=== PATIENT | female | born 1970 | race Caucasian/White ===

== ENCOUNTER 2022-10-18 07:57 | Outpatient (OUT) | payer OTHER, SELFPAY ==
--- NOTE | 2022-10-18 08:01 | MM_ITS ---
Patient: ALEXA SANTOS Exam Date: 10/18/2022 : 1970 Gender:F Ordering : DR JAY THOMAS Admission #: [id number] Family : DR CAN HUGHES . Order #: [id number] CLICK HERE TO VIEW EXAM RADIOLOGY REPORT PROCEDURE: MM TOMOSYNTHESIS SCREENING BI COMPARISON: MG MAMM SCREEN 3D [facility] CAD, 10/16/2021. MG MAMM SCREEN 3D [facility] CAD, 11/13/2020. MG MAMM SCREEN 3D [facility] CAD, 11/13/2019. MG MAMM SCREEN 3D [facility] CAD, 11/07/2018. INDICATIONS: Screening Calculator Name NCI Breast Cancer Risk Assessment Tool 5 Year Breast Cancer Risk Not Reported. Lifetime Breast Cancer Risk Not Reported. Personal Breast Cancer No Personal Ovarian Cancer No Treatments None Family Cancers None LOCATION: [facility] BREAST COMPOSITION: Scattered areas fibroglandular density. FINDINGS: DIAGNOSTIC CATEGORY 1--NEGATIVE. RIGHT BREAST: No significant suspicious finding. No significant change has occurred. LEFT BREAST: No significant suspicious finding. No significant change has occurred. RECOMMENDATIONS: ROUTINE MAMMOGRAM AND CLINICAL EVALUATION IN 12 MONTHS. PLEASE NOTE: A NORMAL MAMMOGRAM DOES NOT EXCLUDE THE POSSIBILITY OF BREAST CANCER. A CLINICALLY SUSPICIOUS PALPABLE LUMP SHOULD BE BIOPSIED. Dictated by: John Live M.D. on 10/18/2022 at 13:16 Approved by: John Live M.D. on 10/18/2022 at 13:18
== END 2022-10-18 07:58 ==
LOC: MAMMO 07:57
PROVIDERS: PCP Family Medicine; Visit Provider Obstetrics & Gynecology
DX: Z12.31 Encounter for screening mammogram for malignant neoplasm of breast (principal)
CPT/HCPCS: 77063; 77067

== ENCOUNTER 2023-12-19 09:23 | Outpatient (OUT) | payer OTHER, SELFPAY ==
--- NOTE | 2023-12-19 09:29 | MM_ITS ---
Patient Name: ALEXA SANTOS MR#: [id number] : 1970 Exam Date: 12/19/2023 Ordering Doctor: DR JAY THOMAS RADIOLOGY REPORT PROCEDURE: MM TOMOSYNTHESIS SCREENING BI COMPARISON: MM TOMOSYNTHESIS SCREENING BI, 10/18/2022. MG MAMM SCREEN 3D [facility] CAD, 10/16/2021. MG MAMM SCREEN 3D [facility] CAD, 11/13/2020. MG MAMM SCREEN 3D [facility] CAD, 11/13/2019. INDICATIONS: Screening Calculator Name NCI Breast Cancer Risk Assessment Tool 5 Year Breast Cancer Risk Not Reported. Lifetime Breast Cancer Risk Not Reported. Personal Breast Cancer No Personal Ovarian Cancer No Treatments None Family Cancers None LOCATION: [facility] BREAST COMPOSITION: There are scattered areas of fibroglandular density. FINDINGS: DIAGNOSTIC CATEGORY 1--NEGATIVE. RIGHT BREAST: No significant suspicious finding. No significant change has occurred. LEFT BREAST: No significant suspicious finding. No significant change has occurred. RECOMMENDATIONS: ROUTINE MAMMOGRAM AND CLINICAL EVALUATION IN 12 MONTHS. PLEASE NOTE: A NORMAL MAMMOGRAM DOES NOT EXCLUDE THE POSSIBILITY OF BREAST CANCER. A CLINICALLY SUSPICIOUS PALPABLE LUMP SHOULD BE BIOPSIED. Dictated by: John Live M.D. on 12/20/2023 at 13:11 Approved by: John Live M.D. on 12/20/2023 at 13:14
== END 2023-12-19 09:24 | disposition home or self-care (01) ==
LOC: MAMMO 09:24
PROVIDERS: Visit Provider Obstetrics & Gynecology
DX: Z12.31 Encounter for screening mammogram for malignant neoplasm of breast (principal)
CPT/HCPCS: 77063; 77067